=== PATIENT | male | born 1995 | race Caucasian/White ===

== ENCOUNTER 2022-07-19 22:22 | Emergency (ER) | payer SELFPAY ==
[2022-07-19 22:31] VITALS: BP 136/73; PULSE 101; RESP 16; TEMP 36.6; O2SAT 100; BMI 26.4
[2022-07-19 22:35] VITALS: BP 155/104; PULSE 120; O2SAT 98
--- NOTE | 2022-07-19 23:24 | ED_ITS ---
HPI - General Adult
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
[2022-07-19 23:34] VITALS: BP 145/100; PULSE 62; RESP 16; TEMP 36.8; O2SAT 98
== END 2022-07-19 23:51 | disposition home or self-care (01) ==
PROVIDERS: Emergency Provider Emergency Medicine
DX: S00.81XA Abrasion of other part of head, initial encounter (principal); R51.9 Headache, unspecified; V43.52XA Car driver injured in collision with other type car in traffic accident, initial encounter; Y93.9 Activity, unspecified; Y92.410 Unspecified street and highway as the place of occurrence of the external cause; Y99.9 Unspecified external cause status; Z23 Encounter for immunization
CPT/HCPCS: 12013; 90471; 90715; 99284

== ENCOUNTER 2022-07-20 01:31 | Inpatient (IN) | payer OTHER, SELFPAY ==
[2022-07-20 01:43] VITALS: BP 142/89; PULSE 82; RESP 16; TEMP 36.4; O2SAT 97; BMI 24.3
[2022-07-20 02:04] VITALS: PULSE 81; RESP 18; TEMP 36.3; O2SAT 97
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
[2022-07-20 02:20] LABS: MANUAL DIFF FLAG NO
[2022-07-20 02:21] LABS: Basophils Absolute Auto 0.1 X10*3/uL (0.0-0.2); Basophils Percent Auto 0.6 % (0-2); Eosinophils Absolute Auto 0.2 X10*3/uL (0.0-0.4); Eosinophils Percent Auto 1.7 % (0-4); Hematocrit 47.5 % (42.0-52.0); Hemoglobin 15.6 g/dl (14.0-18.0); Imm Gran Abs Auto 0.05 X10*3/uL (0.00-0.03); Imm Gran Pct Auto 0.4 % (0.0-0.4); Lymphocytes Absolute Auto 2.3 X10*3/uL (1.2-4.9); Lymphocytes Percent Auto 16.1 % (20-40); Mean Corpuscular HGB Conc 32.8 g/dl (31.0-36.0); Mean Corpuscular Hemoglobin 31.5 pg (27.0-33.0); Mean Corpuscular Volume 95.8 fL (80.0-98.0); Mean Platelet Volume 8.3 fL (9.4-12.4); Monocytes Percent Auto 6.8 % (2-11); Neutrophils Absolute Auto 10.5 x10*3/uL (2.0-8.3); Neutrophils Percent Auto 74.4 % (45-73); Platelet Count 328 X10*3/uL (160-400); Red Blood Count 4.96 X10*6/uL (4.60-5.80); Red Cell Distribution Width 12.9 % (11.0-16.0)
[2022-07-20 02:35] LABS: Ethanol 134 mg/dL
[2022-07-20 02:38] LABS: Alanine Aminotransferase 32 U/L (0-40); Albumin Level 5.2 g/dL (3.5-5.0); Alkaline Phosphatase 73 U/L (39-117); Anion Gap 17 (12-20); Aspartate Amino Transferase 30 U/L (5-37); Bilirubin Total 0.3 mg/dL (0.0-1.0); Blood Urea Nitrogen 9 mg/dL (9-16); Calcium 9.9 mg/dL (8.4-10.2); Carbon Dioxide 26 mmol/L (22-29); Chloride 104 mmol/L (96-108); Creatinine Clr Calc Pharmacy 120.9; Estimated Glomerular Filt Rate > 60; Glucose Random 123 mg/dL (60-115); Potassium 4.8 mmol/L (3.3-5.1); Sodium 142 mmol/L (135-145)
[2022-07-20 02:41] LABS: COVID-19 Test Negative (Negative)
[2022-07-20 03:05] LABS: Amphetamine Screen Urine Not Detected (Not Detect); Barbiturates, Urine Not Detected (Not Detect); Benzodiazepines Screen Urine Not Detected (Not Detect); Cannabinoid Screen Urine POSITIVE (Not Detect); Cocaine Screen Urine POSITIVE (Not Detect); Fentanyl, urine Not Detected (Not Detect); Opiate Screen Urine Not Detected (Not Detect); Phencyclidine Screen Urine Not Detected (Not Detect)
--- NOTE | 2022-07-20 06:40 | PC.NURSE ---
Patient was presented to ED POD at 0115, patient compliant with global climate change researcher process, labs completed and unremarkable, VSS, behavior appropriate and non concerning at this time, [facility] referral completed/confirmed/pending ETA for suicidality, med rec completed/patient is not on any home medication per patient and record, Ativan 2 mg PO administered at 030 with + effect, patient has been sleeping since 314, will continue to monitor.
--- NOTE | 2022-07-20 07:08 | PC.NURSE ---
patient appears to remain asleep at present respirations are even and unlabored patient appears in no distress
--- NOTE | 2022-07-20 11:08 | MHC.CARE ---
CARE Team notified RN and MD regarding Pts daily alcohol use x 5 years
--- NOTE | 2022-07-20 11:15 | ECG_ITS ---
Test Reason : MEDICATION, DRUG USE Blood Pressure : / mmHG Vent. Rate : 089 BPM Atrial Rate : 089 BPM P-R Int : 148 ms QRS Dur : 088 ms QT Int : 362 ms P-R-T Axes : 054 088 060 degrees QTc Int : 440 ms Sinus rhythm with marked sinus arrhythmia Septal infarct , age undetermined Abnormal ECG When compared with ECG of 04-NOV-2014 17:39, No significant change was found Referred By: Annamaria Null Electronically Signed By:Dutch Whatley
[2022-07-20 11:41] LABS: Appearance Urine Clear; Color Urine Yellow; Glucose Urine UA Negative (Negative); Leukocyte Esterase Urine Negative (Negative); Nitrite Urine Negative (Negative); Urine Blood Negative (Negative); Urine Ketones Trace mg/dL (Negative); Urine Protein Negative (Neg-Trace)
[2022-07-20 11:49] VITALS: BP 138/85; PULSE 107; RESP 18; TEMP 37.4; O2SAT 98
[2022-07-20 12:29] LABS: IDNOW Serial# BCCEAD1C; Influenza A Negative (Negative); Influenza B2 Negative (Negative)
[2022-07-20 23:10] VITALS: BP 130/72; PULSE 79
[2022-07-20] MEDS: traZODone HCL 50 MG TABLET PO (23:40)
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
[2022-07-21 06:00] VITALS: BP 135/72; PULSE 81; TEMP 36.6; O2SAT 96
[2022-07-21] MEDS: Thiamine HCL 100 MG TABLET 50 MG PO (08:55)
[2022-07-21] MEDS: Folic Acid 1 MG TABLET PO (08:56)
--- NOTE | 2022-07-21 08:59 | P.HPPS_ITS ---
HPI Date of Service: 07/21/22 Chief Complaint: depession assessment reviewed HPI Subjective Notes: Conditional Voluntary Healthcare Proxy: No Guardianship: No Medical Problems Affecting Mental Status: No Narrative: 11:49 07/20/22 23:10 Temperature 99.4 F Pulse Rate 107 H 79 Respiratory Rate 18 Blood Pressure 138/85 130/72 Pulse Oximetry 98 Oxygen Delivery Method Room Air BMI result on a CIWA protocol. He has not been on any psychotropic medications. While he
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
[2022-07-21 09:38] LABS: Estimated Average Glucose 91 mg/dL; Hemoglobin A1c % 4.8 %
[2022-07-21 10:18] LABS: Cholesterol 216 mg/dL; HDL Cholesterol 55 mg/dL; LDL Cholesterol Calculated 132 mg/dl; Magnesium 2.1 mg/dL (1.6-2.6); Thyroid Stimulating Hormone 1.53 uIU/mL (0.32-4.0); Triglycerides 145 mg/dL
[2022-07-21 10:41] LABS: Folate 18.4 ng/mL (> or = 4.0); Vitamin B12 260 pg/mL (200-900)
[2022-07-21 16:49] VITALS: RESP 16
[2022-07-21] MEDS: Nicotine Polacrilex 2 MG GUM BUCCAL (16:57)
[2022-07-22 08:03] VITALS: BP 142/74; PULSE 74; RESP 16; TEMP 36.7; O2SAT 98
[2022-07-22] MEDS: Thiamine HCL 100 MG TABLET 50 MG PO (09:10)
[2022-07-22] MEDS: Folic Acid 1 MG TABLET PO (09:10)
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
[2022-07-22] MEDS: Nicotine Polacrilex 2 MG GUM BUCCAL ×3 (12:10→18:45)
[2022-07-22 18:00] VITALS: BP 134/69; PULSE 80; TEMP 36.9; O2SAT 97
[2022-07-22] MEDS: traZODone HCL 50 MG TABLET PO (22:14)
[2022-07-23] MEDS: Thiamine HCL 100 MG TABLET 50 MG PO (09:16)
[2022-07-23] MEDS: Sertraline HCL 50 MG TABLET PO (09:23)
[2022-07-23] MEDS: Folic Acid 1 MG TABLET PO (09:24)
[2022-07-23] MEDS: Nicotine Polacrilex 2 MG GUM BUCCAL ×5 (09:24→21:12)
[2022-07-23 10:00] VITALS: BP 130/75; PULSE 83; RESP 20; TEMP 36.5; O2SAT 97
--- NOTE | 2022-07-23 10:39 | P.PNPSI_ITS ---
Subjective Subjective Date of Service: 07/23/22 Reason For Visit: depession Interim History: Patient reports that he has feeling good. Minimal alcohol withdrawa, more at nighttime l. Says he is excited that he has been sober for 2 days and optimistic about remaining so. His plan is to engage in therapy post discharge and attended group similar to AA. Patient agrees with medication regimen as it is and to leave Zoloft at 50 mg; he understands that this can be titrated as needed. Patient denies any SI or HI and reports he is sleeping well. Patient referenced history of a lot of trauma and wanting therapy. Discussed history of substance abuse and patient says he has been drinking alcohol since about 8 years old but has been drinking daily for the past 7 years; cocaine started about 3 years ago and he uses 2 to 3 times a week. Reviewed psychiatric history and patient denies any history of manic type symptoms or episodes. Mental Status Exam Mental Status Exam Narrative: Pt is alert and oriented; behavior is cooperative, friendly and calm; patient is not in distress; dressed in casual attire with unkempt hair but adequate hygiene; laceration with stitches on forehead; mood is described as good and affect congruent; eye contact appropriate; Speech is normal rate; a little loud, but normal prosody and not pressured; no psychomotor agitation/retardation present; thought process is organized and goal directed; Thought content is on tx; otherwise pertinent to relevant topics and without any delusional content, paranoid ideations or grandiosity; denies any SI/HI. There is no evidence of perceptual disturbance. Patients insight and judgment appear intact. Diagnostics Vital Signs (24Hr): Vital Signs - 24 hr 07/22/22 18:00 Temperature 98.4 F Pulse Rate 80 Blood Pressure 134/69 Pulse Oximetry 97 Oxygen Delivery Method Room Air BMI result Body Mass Index 24.3 Labs Results: 07/20/22 02:15 07/20/22 02:16 Labs: Laboratory Results - last 48 hr 07/21/22 08:50 Vitamin B12 260 Folate 18.4 Imaging Radiology Impressions: ITS Impressions Chest X-Ray 07/20/22 11:26 IMPRESSION: Unremarkable examination. Medications Medications Current Medications Acetaminophen (Acetaminophen 325 Mg Tablet) 650 mg PO Q6H PRN PRN Reason: Headache/Pain Mild Scale (1-3) Al Hydroxide/Mg Hydroxide (Magnesium Hydrox/Alum Hydrox 30 Ml Oral.Susp) 30 ml PO Q6H PRN PRN Reason: Heartburn/Nausea Clonidine HCl (Clonidine Hcl 0.1 Mg Tablet) 0.1 mg PO TID PRN; Protocol PRN Reason: hyperarousal Folic Acid (Folic Acid 1 Mg Tablet) 1 mg PO DAILY [facility] Last Admin: 07/23/22 09:24 Dose: 1 mg Hydroxyzine HCl (Hydroxyzine Hcl 50 Mg Tablet) 50 mg PO Q6H PRN PRN Reason: Anxiety Lorazepam (Lorazepam 1 Mg Tablet) 1 mg PO Q4H PRN PRN Reason: [facility] 7-12 Lorazepam (Lorazepam 1 Mg Tablet) 2 mg PO Q4H PRN PRN Reason: [facility] - Last Admin: 07/20/22 23:46 Dose: 2 mg Magnesium Hydroxide (Milk Of Magnesia 30 Ml Oral.Susp) 30 ml PO DAILY PRN PRN Reason: Constipation Nicotine Polacrilex (Nicotine Polacrilex 2 Mg Gum) 2 mg BUCCAL Q2H PRN PRN Reason: Nicotine Cravings Last Admin: 07/23/22 09:24 Dose: 2 mg Ondansetron HCl (Ondansetron Odt 4 Mg Tab.Rapdis) 4 mg TRANSLINGU Q6H PRN PRN Reason: nausea Sertraline HCl (Sertraline Hcl 50 Mg Tablet) 50 mg PO DAILY [facility] Last Admin: 07/23/22 09:23 Dose: 50 mg Thiamine HCl (Thiamine Hcl 100 Mg Tablet) 50 mg PO DAILY [facility] Last Admin: 07/23/22 09:16 Dose: 50 mg Trazodone HCl (Trazodone Hcl 50 Mg Tablet) 50 mg PO BEDTIME PRN PRN Reason: Insomnia Last Admin: 07/22/22 22:14 Dose: 50 mg Allergies Allergies Allergy/AdvReac Type Severity Reaction Status Date / Time No Known Allergies Allergy Unverified 04/13/20 16:12 [No Known Allergies*] Assessment & Plan Assessment & Plan (1) Major depression, recurrent: Status: Acute Code(s): F33.9 - Major depressive disorder, recurrent, unspecified Plan Hiram was admitted for safety and stabilization and detoxification. He is on a [facility] protocol. We discussed medication options and I will initiate Zoloft 25 mg daily. Side effects were reviewed. He will meet with his treatment team on 07/23. At patient referral to be made. Hospital course: 07/22: Continue current regimen and plans. Increase Zoloft to 50 mg 07/23 patient reports good mood and is agreeable with medication regimen PLAn: CV Q 15 minute checks DC [facility]; DC [facility]; patient has not scored enough to get any benzos for 2 days -will add gabapentin 300 mg q.h.s. for a couple nights to help with any linger ing withdrawal symptoms (discussed with patient who agrees) Continue Zoloft 50 mg Social Work helping set up disposition and aftercare Patient educated on: diagnosis, medication risk/benefits, substance abuse and therapeutic strategies Informed Consent: understands Reason for contiued inpatient stay Substantial Risk for: stable for discharge Time Spent With Patient Time: Total time managing care of this patient today ____ minutes.
[2022-07-23 17:45] VITALS: BP 143/84; PULSE 80; TEMP 36.4
[2022-07-23] MEDS: Gabapentin 300 MG CAPSULE PO (21:11)
[2022-07-23] MEDS: traZODone HCL 50 MG TABLET PO (21:12)
[2022-07-24 06:00] VITALS: BP 144/68; PULSE 80; RESP 16; TEMP 37.3; O2SAT 98
[2022-07-24] MEDS: Thiamine HCL 100 MG TABLET 50 MG PO (08:32)
[2022-07-24] MEDS: Folic Acid 1 MG TABLET PO (08:32)
[2022-07-24] MEDS: Sertraline HCL 50 MG TABLET PO (08:33)
[2022-07-24] MEDS: Nicotine Polacrilex 2 MG GUM BUCCAL ×4 (08:59→19:33)
[2022-07-24 13:13] LABS: COVID-19 Test Positive (Negative); IDNOW Serial# BCCEAD1C
--- NOTE | 2022-07-24 14:59 | HO.PSYCHPN ---
Subjective Subjective Date of Service: 07/24/22 Reason For Visit: depession Interim History: Patient reports a little frustration today since he is having trouble getting a hold of his sister but otherwise good mood and no complaints. Patient did test positive for COVID but so far no clear symptoms. Feels that medications are helpful and that he slept well last night. Remains eager for help setting up aftercare services. Attending groups and engaged in treatment Mental Status Exam Mental Status Exam Narrative: Pt is alert and oriented; behavior is cooperative, friendly and calm; patient is not in distress; dressed in casual attire with unkempt hair but adequate hygiene; laceration with stitches on forehead; mood is described as good and affect congruent; eye contact appropriate; Speech is normal rate; a little loud, but normal prosody and not pressured; no psychomotor agitation/retardation present; thought process is organized and goal directed; Thought content is on tx; otherwise pertinent to relevant topics and without any delusional content, paranoid ideations or grandiosity; denies any SI/HI. There is no evidence of perceptual disturbance. Patients insight and judgment appear intact. Diagnostics Vital Signs (24Hr): Vital Signs - 24 hr 07/23/22 17:45 07/24/22 06:00 Temperature 97.6 F 99.1 F Pulse Rate 80 80 Respiratory Rate 16 Blood Pressure 143/84 H 144/68 H Pulse Oximetry 98 Oxygen Delivery Method Room Air BMI result Body Mass Index 24.3 Labs Results: 07/20/22 02:15 07/20/22 02:16 Labs: Laboratory Results - last 48 hr 07/24/22 12:46 COVID-19 ([facility]) Positive A COVID-19 Clin Com See Note Imaging Radiology Impressions: ITS Impressions Chest X-Ray 07/20/22 11:26 IMPRESSION: Unremarkable examination. Medications Medications Current Medications Acetaminophen (Acetaminophen 325 Mg Tablet) 650 mg PO Q6H PRN PRN Reason: Headache/Pain Mild Scale (1-3) Al Hydroxide/Mg Hydroxide (Magnesium Hydrox/Alum Hydrox 30 Ml Oral.Susp) 30 ml PO Q6H PRN PRN Reason: Heartburn/Nausea Clonidine HCl (Clonidine Hcl 0.1 Mg Tablet) 0.1 mg PO TID PRN; Protocol PRN Reason: hyperarousal Folic Acid (Folic Acid 1 Mg Tablet) 1 mg PO DAILY [facility] Last Admin: 07/24/22 08:32 Dose: 1 mg Gabapentin (Gabapentin 300 Mg Capsule) 300 mg PO BEDTIME [facility] Stop: 07/25/22 23:50 Last Admin: 07/23/22 21:11 Dose: 300 mg Hydroxyzine HCl (Hydroxyzine Hcl 50 Mg Tablet) 50 mg PO Q6H PRN PRN Reason: Anxiety Magnesium Hydroxide (Milk Of Magnesia 30 Ml Oral.Susp) 30 ml PO DAILY PRN PRN Reason: Constipation Nicotine Polacrilex (Nicotine Polacrilex 2 Mg Gum) 2 mg BUCCAL Q2H PRN PRN Reason: Nicotine Cravings Last Admin: 07/24/22 12:17 Dose: 2 mg Ondansetron HCl (Ondansetron Odt 4 Mg Tab.Rapdis) 4 mg TRANSLINGU Q6H PRN PRN Reason: nausea Sertraline HCl (Sertraline Hcl 50 Mg Tablet) 50 mg PO DAILY [facility] Last Admin: 07/24/22 08:33 Dose: 50 mg Thiamine HCl (Thiamine Hcl 100 Mg Tablet) 50 mg PO DAILY [facility] Last Admin: 07/24/22 08:32 Dose: 50 mg Trazodone HCl (Trazodone Hcl 50 Mg Tablet) 50 mg PO BEDTIME PRN PRN Reason: Insomnia Last Admin: 07/23/22 21:12 Dose: 50 mg Allergies Allergies Allergy/AdvReac Type Severity Reaction Status Date / Time No Known Allergies Allergy Unverified 04/13/20 16:12 [No Known Allergies*] Assessment & Plan Assessment & Plan (1) Major depression, recurrent: Status: Acute Code(s): F33.9 - Major depressive disorder, recurrent, unspecified Plan Hiram was admitted for safety and stabilization and detoxification. He is on a [facility] protocol. We discussed medication options and I will initiate Zoloft 25 mg daily. Side effects were reviewed. He will meet with his treatment team on 07/23. At patient referral to be made. Hospital course: 07/22: Continue current regimen and plans. Increase Zoloft to 50 mg 07/23 patient reports good mood and is agreeable with medication regimen 07/24 continue current regimen COVID positive; agrees to isolation PLAn: CV Q 15 minute checks COVID positive; agrees to isolation dc'd [facility]; patient has not scored enough to get any benzos for 2 days -will add gabapentin 300 mg q.h.s. for a couple nights to help with any lingering withdrawal symptoms (discussed with patient who agrees) Continue Zoloft 50 mg Social Work helping set up disposition and aftercare Patient educated on: diagnosis and medical condition Informed Consent: understands Reason for contiued inpatient stay Substantial Risk for: stable for discharge Time Spent With Patient Time: Total time managing care of this patient today ____ minutes.
[2022-07-24 16:35] VITALS: BP 131/74; PULSE 90; TEMP 37.2
[2022-07-24] MEDS: traZODone HCL 50 MG TABLET PO (21:41)
[2022-07-24] MEDS: Gabapentin 300 MG CAPSULE PO (21:41)
[2022-07-25 06:00] VITALS: BP 120/77; PULSE 91; RESP 18; TEMP 36.7; O2SAT 97
[2022-07-25] MEDS: Folic Acid 1 MG TABLET PO (08:01)
[2022-07-25] MEDS: Sertraline HCL 50 MG TABLET PO (08:01)
[2022-07-25] MEDS: Thiamine HCL 100 MG TABLET 50 MG PO (08:01)
[2022-07-25] MEDS: Nicotine Polacrilex 2 MG GUM BUCCAL ×4 (10:25→20:06)
--- NOTE | 2022-07-25 10:30 | HO.PSYCHPN ---
Subjective Subjective Date of Service: 07/25/22 Reason For Visit: depession Interim History: Patient reports good mood and feeling stable. Denies any symptoms from COVID in says he was actually COVID positive back in May and wonders if this is just a remanent lab result. Patient optimistic about staying sober. [employer] and patient discussed vulnerabilities and risks of relapse which patient says he is taking very seriously; discussed coping strategies. He shared his plan for sobriety which is well thought out and involves daily meetings and eventually therapy once that is set up; his sister and father are both sober and in sustained recovery and are supportive; he plans to stay with his sister post discharge. Patient has talked to his friends who have removed all of the alcohol from the house and are also supportive and helping him pursue sobriety. Patient reports sleeping well with gabapentin; had some weird dreams on trazodone but wants to continue. No SI no HI no AVH. Mental Status Exam Mental Status Exam Narrative: Pt is alert and oriented; behavior is cooperative, friendly and calm; patient is not in distress; dressed in casual attire with unkempt hair but adequate hygiene; laceration with stitches on forehead; mood is described as good and affect congruent; eye contact appropriate; Speech is normal rate; a little loud, but normal prosody and not pressured; no psychomotor agitation/retardation present; thought process is organized and goal directed; Thought content is on tx; otherwise pertinent to relevant topics and without any delusional content, paranoid ideations or grandiosity; denies any SI/HI. There is no evidence of perceptual disturbance. Patients insight and judgment are fair. Diagnostics Vital Signs (24Hr): Vital Signs - 24 hr 07/24/22 16:35 07/25/22 06:00 Temperature 98.9 F 98.1 F Pulse Rate 90 91 Respiratory Rate 18 Blood Pressure 131/74 120/77 Pulse Oximetry 97 Oxygen Delivery Method Room Air BMI result Body Mass Index 24.3 Labs Results: 07/20/22 02:15 07/20/22 02:16 Labs: Laboratory Results - last 48 hr 07/24/22 12:46 COVID-19 ([facility]) Positive A COVID-19 Clin Com See Note Imaging Radiology Impressions: ITS Impressions Chest X-Ray 07/20/22 11:26 IMPRESSION: Unremarkable examination. Medications Medications Current Medications Acetaminophen (Acetaminophen 325 Mg Tablet) 650 mg PO Q6H PRN PRN Reason: Headache/Pain Mild Scale (1-3) Al Hydroxide/Mg Hydroxide (Magnesium Hydrox/Alum Hydrox 30 Ml Oral.Susp) 30 ml PO Q6H PRN PRN Reason: Heartburn/Nausea Clonidine HCl (Clonidine Hcl 0.1 Mg Tablet) 0.1 mg PO TID PRN; Protocol PRN Reason: hyperarousal Folic Acid (Folic Acid 1 Mg Tablet) 1 mg PO DAILY [facility] Last Admin: 07/25/22 08:01 Dose: 1 mg Gabapentin (Gabapentin 300 Mg Capsule) 300 mg PO BEDTIME [facility] Stop: 07/25/22 23:50 Last Admin: 07/24/22 21:41 Dose: 300 mg Hydroxyzine HCl (Hydroxyzine Hcl 50 Mg Tablet) 50 mg PO Q6H PRN PRN Reason: Anxiety Magnesium Hydroxide (Milk Of Magnesia 30 Ml Oral.Susp) 30 ml PO DAILY PRN PRN Reason: Constipation Nicotine Polacrilex (Nicotine Polacrilex 2 Mg Gum) 2 mg BUCCAL Q2H PRN PRN Reason: Nicotine Cravings Last Admin: 07/25/22 10:25 Dose: 2 mg Ondansetron HCl (Ondansetron Odt 4 Mg Tab.Rapdis) 4 mg TRANSLINGU Q6H PRN PRN Reason: nausea Sertraline HCl (Sertraline Hcl 50 Mg Tablet) 50 mg PO DAILY [facility] Last Admin: 07/25/22 08:01 Dose: 50 mg Thiamine HCl (Thiamine Hcl 100 Mg Tablet) 50 mg PO DAILY [facility] Last Admin: 07/25/22 08:01 Dose: 50 mg Trazodone HCl (Trazodone Hcl 50 Mg Tablet) 50 mg PO BEDTIME PRN PRN Reason: Insomnia Last Admin: 07/24/22 21:41 Dose: 50 mg Allergies Allergies Allergy/AdvReac Type Severity Reaction Status Date / Time No Known Allergies Allergy Unverified 04/13/20 16:12 [No Known Allergies*] Assessment & Plan Assessment & Plan (1) Major depression, recurrent: Status: Acute Code(s): F33.9 - Major depressive disorder, recurrent, unspecified Plan Hiram was admitted for safety and stabilization and detoxification. He is on a [facility] protocol. We discussed medication options and I will initiate Zoloft 25 mg daily. Side effects were reviewed. He will meet with his treatment team on 07/23. At patient referral to be made. Hospital course: 07/22: Continue current regimen and plans. Increase Zoloft to 50 mg 07/23 patient reports good mood and is agreeable with medication regimen 07/24 continue current regimen COVID positive; agrees to isolation 07/25 no COVID symptoms; could possibly be positive lab result as a remanent from COVID this past Thanks. Otherwise patient remains in a good mood, sleeping and eating well, optimistic about staying sober, future oriented and feeling good about discharge this Friday. Patient has remained engage with treatment and up until isolation attending all groups. He is treating his addictions seriously and not minimizing his risks and vulnerability to relapse, doing his best to set up a system that can help him remain sober. PLAn: CV Q 15 minute checks COVID positive; agrees to isolation -will add gabapentin 300 mg q.h.s. for a couple nights to help with any lingering withdrawal symptoms (discussed with patient who agrees) Continue Zoloft 50 mg Trazodone 50 mg q.h.s. p.r.n. Social Work helping set up disposition and aftercare Patient educated on: diagnosis, medication risk/benefits, substance abuse, therapeutic strategies and medical condition Informed Consent: understands Reason for contiued inpatient stay Substantial Risk for: stable for discharge Time Spent With Patient Time: Total time managing care of this patient today ____ minutes.
[2022-07-25] MEDS: Gabapentin 300 MG CAPSULE PO (20:48)
[2022-07-25] MEDS: traZODone HCL 50 MG TABLET PO (20:48)
[2022-07-26 06:00] VITALS: BP 145/74; PULSE 73; RESP 18; TEMP 36.3; O2SAT 99
--- NOTE | 2022-07-26 08:48 | HO.PSYCHPN ---
Subjective Subjective Date of Service: 07/26/22 Reason For Visit: depession Interim History: No COVID symptoms Continues to sleep well, feels good, optimistic about staying sober and stable. He is excited about his treatment plan. Discussed gabapentin as a can help for cravings which patient would like to continue with as it also helps with sleep. Also discussed the eventual expansion of coping tools to the point where patient will be able to cope with cravings and not need gabapentin. Also discussed risks/side effects of gabapentin including lower limb edema and risks of misuse, especially with other substance abuse; patient understands and will be cautious. Patient feels ready for discharge tomorrow. Mental Status Exam Mental Status Exam Narrative: Pt is alert and oriented; behavior is cooperative, friendly and calm; patient is not in distress; dressed in casual attire with unkempt hair but adequate hygiene; laceration with stitches on forehead; mood is described as good and affect congruent; eye contact appropriate; Speech is normal rate; a little loud, but normal prosody and not pressured; no psychomotor agitation/retardation present; thought process is organized and goal directed; Thought content is on tx, post discharge plans; otherwise pertinent to relevant topics and without any delusional content, paranoid ideations or grandiosity; denies any SI/HI. There is no evidence of perceptual disturbance. Patients insight and judgment are fair. Diagnostics Vital Signs (24Hr): BMI result Body Mass Index 24.3 Labs Results: 07/20/22 02:15 07/20/22 02:16 Labs: Laboratory Results - last 48 hr 07/24/22 12:46 COVID-19 (THUAN) Positive A COVID-19 Clin Com See Note Imaging Radiology Impressions: ITS Impressions Chest X-Ray 07/20/22 11:26 IMPRESSION: Unremarkable examination. Medications Medications Current Medications Acetaminophen (Acetaminophen 325 Mg Tablet) 650 mg PO Q6H PRN PRN Reason: Headache/Pain Mild Scale (1-3) Al Hydroxide/Mg Hydroxide (Magnesium Hydrox/Alum Hydrox 30 Ml Oral.Susp) 30 ml PO Q6H PRN PRN Reason: Heartburn/Nausea Clonidine HCl (Clonidine Hcl 0.1 Mg Tablet) 0.1 mg PO TID PRN; Protocol PRN Reason: hyperarousal Folic Acid (Folic Acid 1 Mg Tablet) 1 mg PO DAILY ELSIE Last Admin: 07/25/22 08:01 Dose: 1 mg Gabapentin (Gabapentin 300 Mg Capsule) 300 mg PO BID PRN PRN Reason: cravings/insomnia Gabapentin (Gabapentin 300 Mg Capsule) 300 mg PO BEDTIME ELSIE Hydroxyzine HCl (Hydroxyzine Hcl 50 Mg Tablet) 50 mg PO Q6H PRN PRN Reason: Anxiety Magnesium Hydroxide (Milk Of Magnesia 30 Ml Oral.Susp) 30 ml PO DAILY PRN PRN Reason: Constipation Nicotine Polacrilex (Nicotine Polacrilex 2 Mg Gum) 2 mg BUCCAL Q2H PRN PRN Reason: Nicotine Cravings Last Admin: 07/25/22 20:06 Dose: 2 mg Ondansetron HCl (Ondansetron Odt 4 Mg Tab.Rapdis) 4 mg TRANSLINGU Q6H PRN PRN Reason: nausea Sertraline HCl (Sertraline Hcl 50 Mg Tablet) 50 mg PO DAILY [facility] Last Admin: 07/25/22 08:01 Dose: 50 mg Thiamine HCl (Thiamine Hcl 100 Mg Tablet) 50 mg PO DAILY [facility] Last Admin: 07/25/22 08:01 Dose: 50 mg Trazodone HCl (Trazodone Hcl 50 Mg Tablet) 50 mg PO BEDTIME PRN PRN Reason: Insomnia Last Admin: 07/25/22 20:48 Dose: 50 mg Allergies Allergies Allergy/AdvReac Type Severity Reaction Status Date / Time No Known Allergies Allergy Unverified 04/13/20 16:12 [No Known Allergies*] Assessment & Plan Assessment & Plan (1) Major depression, recurrent: Status: Acute Code(s): F33.9 - Major depressive disorder, recurrent, unspecified Plan Hiram was admitted for safety and stabilization and detoxification. He is on a [facility] protocol. We discussed medication options and I will initiate Zoloft 25 mg daily. Side effects were reviewed. He will meet with his treatment team on 07/23. At patient referral to be made. Hospital course: 07/22: Continue current regimen and plans. Increase Zoloft to 50 mg 07/23 patient reports good mood and is agreeable with medication regimen 07/24 continue current regimen COVID positive; agrees to isolation 07/25 no COVID symptoms; could possibly be positive lab result as a remanent from COVID this past Thanksgiving. Otherwise patient remains in a good mood, sleeping and eating well, optimistic about staying sober, future oriented and feeling good about discharge this Friday. Patient has remained engage with treatment and up until isolation attending all groups. He is treating his addictions seriously and not minimizing his risks and vulnerability to relapse, doing his best to set up a system that can help him remain sober. 07/26 patient doing well, stable, future oriented and looking forward to discharge. Patient continues to pursue aftercare planning. He is not in imminent risk for harm to self or others and request for discharge honored. PLAn: CV Q 15 minute checks COVID positive; agrees to isolation Continue gabapentin q.h.s. since it helps with sleep; will add extra daytime dose p.r.n. for cravings. Continue Zoloft 50 mg Trazodone 50 mg q.h.s. p.r.n. Social Work helping set up disposition and aftercare Patient educated on: diagnosis, medication risk/benefits, substance abuse and therapeutic strategies Informed Consent: understands Reason for contiued inpatient stay Substantial Risk for: stable for discharge Time Spent With Patient Time: Total time managing care of this patient today ____ minutes.
[2022-07-26] MEDS: Thiamine HCL 100 MG TABLET 50 MG PO (08:53)
[2022-07-26] MEDS: Sertraline HCL 50 MG TABLET PO (08:54)
[2022-07-26] MEDS: Folic Acid 1 MG TABLET PO (08:54)
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
[2022-07-26] MEDS: Nicotine Polacrilex 2 MG GUM BUCCAL ×3 (10:41→19:02)
[2022-07-26 18:00] VITALS: BP 137/86; PULSE 75; RESP 16; TEMP 37.4; O2SAT 98
[2022-07-26] MEDS: traZODone HCL 50 MG TABLET PO (22:14)
[2022-07-26] MEDS: Gabapentin 300 MG CAPSULE PO (22:14)
[2022-07-27 06:00] VITALS: BP 153/84; PULSE 95; RESP 16; TEMP 37.4; O2SAT 98
[2022-07-27] MEDS: Sertraline HCL 50 MG TABLET PO (09:33)
[2022-07-27] MEDS: Folic Acid 1 MG TABLET PO (09:33)
[2022-07-27] MEDS: Thiamine HCL 100 MG TABLET 50 MG PO (09:33)
--- NOTE | 2022-07-27 19:41 | HO.PSYCHPN ---
Subjective Subjective Date of Service: 07/27/22 Reason For Visit: depession Interim History: Planning discharge today. Pleased with how he is feeling. Review of medications. No current questions or concerns. Looking forward to getting back to his life he reports. Discussed his love of Magdiel Busby and current reading of IT, which was a gift from his mother. Medication Compliance: Yes Side effects from medications: No Attending Groups: No Review of Systems Acute medical concerns: No Medical Review of Systems: unchanged Mental Status Exam Mental Status Exam Patient Appearance: Appropriate Patient Orientation: Person, Place, Time and Situation Level of Consciousness: Alert Patient Behavior: Appropriate, Talkative and Good Eye Contact Mood Description: Appropriate Affect Description: Appropriate Patient Cognition Impaired: No Ability to Follow Directions: Good Speech Pattern: Spontaneous Speech Memory Description: Intact Hallucinations: None Thought Process: Intact and Goal Oriented Thought Content: positive for Intact and positive for Goal Oriented Judgement: Good Diagnostics Vital Signs (24Hr): Vital Signs - 24 hr 07/27/22 06:00 Temperature 99.3 F Pulse Rate 95 Respiratory Rate 16 Blood Pressure 153/84 H Pulse Oximetry 98 Oxygen Delivery Method Room Air BMI result Body Mass Index 24.3 Labs Results: 07/20/22 02:15 07/20/22 02:16 Imaging Radiology Impressions: ITS Impressions Chest X-Ray 07/20/22 11:26 IMPRESSION: Unremarkable examination. Medications Allergies Allergies Allergy/AdvReac Type Severity Reaction Status Date / Time No Known Allergies Allergy Unverified 04/13/20 16:12 [No Known Allergies*] Assessment & Plan Assessment & Plan (1) Major depression, recurrent: Status: Acute Code(s): F33.9 - Major depressive disorder, recurrent, unspecified Plan Hiram was admitted for safety and stabilization and detoxification. He is on a [facility] protocol. We discussed medication options and I will initiate Zoloft 25 mg daily. Side effects were reviewed. He will meet with his treatment team on 07/23. At patient referral to be made. Hospital course: 07/22: Continue current regimen and plans. Increase Zoloft to 50 mg 07/23 patient reports good mood and is agreeable with medication regimen 07/24 continue current regimen COVID positive; agrees to isolation 07/25 no COVID symptoms; could possibly be positive lab result as a remanent from COVID this past Thanksgiving. Otherwise patient remains in a good mood, sleeping and eating well, optimistic about staying sober, future oriented and feeling good about discharge this Friday. Patient has remained engage with treatment and up until isolation attending all groups. He is treating his addictions seriously and not minimizing his risks and vulnerability to relapse, doing his best to set up a system that can help him remain sober. 07/26 patient doing well, stable, future oriented and looking forward to discharge. Patient continues to pursue aftercare planning. He is not in imminent risk for harm to self or others and request for discharge honored. 07/27/22 Discharge planned for today. PLAn: CV Q 15 minute checks COVID positive; agrees to isolation Continue gabapentin q.h.s. since it helps with sleep; will add extra daytime dose p.r.n. for cravings. Continue Zoloft 50 mg Trazodone 50 mg q.h.s. p.r.n. Social Work helping set up disposition and aftercare Informed Consent: understands Reason for contiued inpatient stay Substantial Risk for: stable for discharge Time Spent With Patient Time: Total time managing care of this patient today ___15_ minutes.
== END 2022-07-27 13:30 | disposition home or self-care (01) | DRG 885 ==
LOC: HO.ED 04:07 → HO.PM5 20:49
PROVIDERS: Clinical Nurse Specialist Psychiatric/Mental Health, Adult; Student in an Organized Health Care Education/Training Program; Admitting Provider Registered Nurse; Emergency Provider Internal Medicine; Visit Provider Psychiatry & Neurology Psychiatry
DX: F33.2 Major depressive disorder, recurrent severe without psychotic features (principal); U07.1 COVID-19; R45.851 Suicidal ideations; F17.210 Nicotine dependence, cigarettes, uncomplicated; F10.20 Alcohol dependence, uncomplicated; Y90.6 Blood alcohol level of 120-199 mg/100 ml; Z23 Encounter for immunization; Z59.01 Sheltered homelessness; Z91.51 Personal history of suicidal behavior; Z79.899 Other long term (current) drug therapy
CPT/HCPCS: 36415; 71045; 80053; 80061; 80307; 81003; 82077; 82607; 82746; 83036; 83735; 84439; 84443; 85025; 87502; 87635; 90686; 93005; 99285

== ENCOUNTER 2022-11-04 12:36 | Emergency (ER) | payer MEDICAID, OTHER, SELFPAY ==
[2022-11-04 13:26] VITALS: BP 134/70; PULSE 90; RESP 18; TEMP 36.7; O2SAT 99; BMI 23.8
--- NOTE | 2022-11-04 13:41 | ED.GENADULT ---
HPI - General Adult General Chief complaint: Psychiatric Symptoms <JEANNA Mcelroy - Last Filed: 11/11/22 09:24> Stated complaint: crisis <JEANNA Mcelroy - Last Filed: 11/11/22 09:24> Time Seen by Provider: 11/04/22 15:20 <JEANNA Mcelroy - Last Filed: 11/11/22 09:24> Source: patient <Georgia Finnegan NP - Last Filed: 11/04/22 18:07> Mode of arrival: ambulatory <Georgia Finnegan NP - Last Filed: 11/04/22 18:07> Limitations: no limitations <SARAH Hendrickson Last Filed: 11/04/22 18:07> History of Present Illness HPI narrative: 27-year-old male with a history of depression, alcohol use disorder presents the ER with complaints of feeling depressed. Patient would like to be admitted for dual diagnosis. He is drinking up to 1 sleeve of nips per day. Last drink 4 hours prior to arrival. No additional substance use. No SI or HI or hallucination. Patient reports he was admitted here in June of 2022 and was discharged home with sertraline, gabapentin, trazodone. Patient reports he took these medications but did not pay for his insurance premium and so they would not cover his medications when he went to refill them. He currently does not have any insurance. He has not had meds in >3months. No physical complaints <Georgia Finnegan NP - Last Filed: 11/04/22 18:07> Related Data Home medications: Home Medications Medication Instructions Recorded Confirmed No Known Home Meds 11/04/22 11/04/22 <JEANNA Mcelroy - Last Filed: 11/11/22 09:24> Allergies/adverse reactions: Allergies Allergy/AdvReac Type Severity Reaction Status Date / Time No Known Allergies Allergy Unverified 04/13/20 16:12 [No Known Allergies*] <JEANNA Mcelroy - Last Filed: 11/11/22 09:24> Review of Systems Review of Systems: Yes all other systems are reviewed and are negative <SARAH Hendrickson Last Filed: 11/04/22 18:07> Constitutional: Constitutional: Reports no additional constitutional complaints, Denies body ache(s), Denies chills, Denies fever(s), Denies headache(s) and Denies weakness <Georgia Finnegan [employer] - Last Filed: 11/04/22 18:07> Eyes: Eyes: Reports no additional eye complaints and Denies change in vision <Georgia Finnegan [employer] - Last Filed: 11/04/22 18:07> ENT: Reports system reviewed and no additional complaints, except as documented, Denies dizziness, Denies headache(s), Denies nasal congestion, Denies nasal discharge and Denies neck pain <Georgia Finnegan [employer] - Last Filed: 11/04/22 18:07> Cardiovascular: Cardiovascular: Reports no additional cardiovascular complaints, Denies chest pain, Denies leg edema and Denies dyspnea <Georgia Finnegan [employer] - Last Filed: 11/04/22 18:07> Respiratory: Respiratory: Reports no additional respiratory complaints, Denies cough and Denies dyspnea <Georgia Finnegan [employer] - Last Filed: 11/04/22 18:07> Gastrointestinal: Gastrointestinal: Reports no additional gastrointestinal complaints, Denies abdominal pain, Denies diarrhea, Denies nausea and Denies vomiting <Georgia Finnegan [employer] - Last Filed: 11/04/22 18:07> Genitourinary: Genitourinary: Denies urinary incontinence <Georgia Finnegan [employer] - Last Filed: 11/04/22 18:07> Musculoskeletal: Musculoskeletal: Reports no additional musculoskeletal complaints, Denies back pain, Denies arthralgias, Denies joint swelling, Denies neck pain, Denies numbness and Denies tingling <Georgia Finnegan [employer] - Last Filed: 11/04/22 18:07> Integumentary/Breasts: Skin/Breast: Reports system reviewed and no additional complaints, except as docu and Denies rash <Georgia Finnegan [employer] - Last Filed: 11/04/22 18:07> Neurologic: Reports system reviewed and no additional complaints, except as documented, Denies dizziness, Denies headache(s), Denies numbness, Denies tingling and Denies weakness <Georgia Finnegan NP - Last Filed: 11/04/22 18:07> Psychiatric: Psychiatric: Denies anxiety, Reports depression, Denies homicidal ideation and Denies suicidal ideation <Georgia Finnegan NP - Last Filed: 11/04/22 18:07> [facility] Past Medical History Attestation statement: The following information was validated with the patient. <Georgia Finnegan NP - Last Filed: 11/04/22 18:07> Source: old records reviewed <Georgia Finnegan NP - Last Filed: 11/04/22 18:07> Medical History: Medical History Bipolar disorder Suicidal ideation <JEANNA Mcelroy - Last Filed: 11/11/22 09:24> Social History Social History: Social History Household Members: None Housing: Apartment Do you presently have visiting nurse or other home services: No Alcohol intake: current Alcohol intake frequency: holidays/special occasions only Patient Tobacco Use Status: Current everyday Tobacco user Tobacco use type: Cigarette Cigarette Packs Per Day: 1 Cigarettes Per Day: 20.0 Years Smoked: 9 e-Cigarette/Vaping Use: Never Used Second Hand Smoke Exposure: Yes Substance Use Type: Crack/Cocaine and Marijuana Advance Directives: No Advance Directives Information Provided: No service: No Sexual orientation: Straight/Heterosexual <JEANNA Mcelroy - Last Filed: 11/11/22 09:24> Physical Exam ED Vital Signs: Vital Signs - 24 hr 11/04/22 13:26 11/05/22 02:10 11/05/22 06:01 Temperature 98.1 F 98 F 96.9 F Pulse Rate 90 78 75 Respiratory Rate 18 19 18 Blood Pressure 134/70 135/81 111/78 Pulse Oximetry 99 99 Oxygen Delivery Method Room Air Room Air Room Air BMI result Body Mass Index 23.8 <JEANNA Mcelroy Last Filed: 11/11/22 09:24> Vital Signs - 24 hr 11/04/22 13:26 11/05/22 02:10 11/05/22 06:01 Temperature 98.1 F 98 F 96.9 F Pulse Rate 90 78 75 Respiratory Rate 18 19 18 Blood Pressure 134/70 135/81 111/78 Pulse Oximetry 99 99 Oxygen Delivery Method Room Air Room Air Room Air BMI result Body Mass Index 23.8 <Georgia Finnegan NP - Last Filed: 11/04/22 18:07> Vital Signs - 24 hr 11/04/22 13:26 11/05/22 02:10 11/05/22 06:01 Temperature 98.1 F 98 F 96.9 F Pulse Rate 90 78 75 Respiratory Rate 18 19 18 Blood Pressure 134/70 135/81 111/78 Pulse Oximetry 99 99 Oxygen Delivery Method Room Air Room Air Room Air BMI result Body Mass Index 23.8 <Nir Calvin MD - Last Filed: 11/05/22 09:49> Const General: cooperative, healthy appearing, comfortable and no acute distress <Georgia Finnegan NP - Last Filed: 11/04/22 18:07> Orientation/consciousness: patient oriented x3 <Georgia Finnegan NP - Last Filed: 11/04/22 18:07> Limitations: no limitations <Georgia Finnegan NP - Last Filed: 11/04/22 18:07> HENMT Head: Yes normal to inspection <Georgia Finnegan NP - Last Filed: 11/04/22 18:07> Ears: hearing grossly normal bilaterally <Georgia Finnegan NP - Last Filed: 11/04/22 18:07> Eyes General: appearance normal, both eyes and all related structures <Georgia Finnegan NP - Last Filed: 11/04/22 18:07> Pupils: Equal, round and reactive pupils present <Georgia Finnegan NP - Last Filed: 11/04/22 18:07> Neck Neck: Yes normal visual inspection and Yes full ROM <Georgia Finnegan NP - Last Filed: 11/04/22 18:07> Chest Chest palpation & inspection: normal inspection of the chest <Georgia Finnegan NP - Last Filed: 11/04/22 18:07> Resp Effort & Inspection: normal respiratory effort <Georgia Finnegan NP - Last Filed: 11/04/22 18:07> Auscultation: clear to auscultation bilaterally <Georgia Finnegan [employer] - Last Filed: 11/04/22 18:07> Cardio Rate: regular rate <Georgia Finnegan [employer] - Last Filed: 11/04/22 18:07> Rhythm: regular rhythm <Georgia Finneagn [employer] - Last Filed: 11/04/22 18:07> Peripheral pulses: Peripheral pulses 2+ throughout <Georiga Finnegan [employer] - Last Filed: 11/04/22 18:07> GI Inspection: Yes normal to inspection <Georgia Finnegan [employer] - Last Filed: 11/04/22 18:07> Palpation (GI): Soft to palpation and nontender <Georgia Finnegan [employer] - Last Filed: 11/04/22 18:07> General: Yes no CVA tenderness <Georgia Finnegan [employer] - Last Filed: 11/04/22 18:07> Back/Spine/Pelvis Back: no CVA tenderness <Georgia Finnegan, [employer] - Last Filed: 11/04/22 18:07> Thoracic/Lumbar Spine: thoracic and lumbar spine normal to inspection <Georgia Finnegan [employer] - Last Filed: 11/04/22 18:07> Skin General skin exam: no rashes or lesions noted <Georgia Finnegan [employer] - Last Filed: 11/04/22 18:07> Neuro General: patient oriented x3 and moves all extremities <Georgia Finnegan [employer] - Last Filed: 11/04/22 18:07> Cranial nerves: Yes Equal, round and reactive pupils present <Georgia Finnegan [employer] - Last Filed: 11/04/22 18:07> Cognition (Neuro): normal cognition <Georgia Finnegan [employer] - Last Filed: 11/04/22 18:07> Extrem General: Yes normal to inspection, Yes no pedal edema and Yes no calf tenderness <Georgia Finnegan [employer] - Last Filed: 11/04/22 18:07> Course Course Course Narrative: RME: 27 yold male presents to the ED for depression and detox from alcohol. patient is not SI or homicidal. labs and CARE team ordereed <JEANNA Mcelroy - Last Filed: 11/11/22 09:24> Reevaluation(s) Reevaluation #1: Placed in physician observation pending disposition <Georgia Finnegan NP - Last Filed: 11/04/22 18:07> Reevaluation #2: physician observation: patient being evaluated for detox and to be cleared for safety, calm no issues <Nir Calvin MD - Last Filed: 11/05/22 09:49> Time: 09:49 <Nir Calvin MD - Last Filed: 11/05/22 09:49> Medical Decision Making Medical Decision Making MDM Narrative: 27-year-old male here with complaints of depression, increasing alcohol use looking for dual diagnosis bed. Patient denies suicidal thoughts. Patient has no physical complaints. No concern for acute ingestion or trauma. Will obtain labs, tox screen, COVID screen and crisis consultation <Georgia Finnegan NP - Last Filed: 11/04/22 18:07> Differential Diagnosis Differential Diagnoses: The differential diagnosis associated with the presentation includes <Georgia Finnegan NP - Last Filed: 11/04/22 18:07> Depression, substanceuse <Georgia Finnegan NP - Last Filed: 11/04/22 18:07> Lab Data [facility] Lab Attestation statement: I reviewed the patient's lab results. <Georgia Finnegan NP - Last Filed: 11/04/22 18:07> Result Diagrams: 11/04/22 16:00 11/04/22 16:00 <JEANNA Mcelroy - Last Filed: 11/11/22 09:24> Labs: Lab Results 11/04/22 11/04/22 11/04/22 Range/Units 15:35 16:00 16:00 WBC 11.6 H (4.8-10.8) X10*3/uL RBC 5.04 (4.60-5.80) X10*6/uL Hgb 15.9 (14.0-18.0) g/dl Hct 47.1 (42.0-52.0) % MCV 93.5 (80.0-98.0) fL MCH 31.5 (27.0-33.0) pg MCHC 33.8 (31.0-36.0) g/dl RDW 13.9 (11.0-16.0) % Plt Count 360 (160-400) X10*3/uL MPV 8.3 L (9.4-12.4) fL Immature Gran % (Auto) 0.3 (0.0-0.4) % Neut % (Auto) 55.7 (45-73) % Lymph % (Auto) 28.7 (20-40) % Norman % (Auto) 9.4 (2-11) % Eos % (Auto) 5.0 H (0-4) % Baso % (Auto) 0.9 (0-2) % Lymph # (Auto) 3.3 (1.2-4.9) X10*3/uL Norman # (Auto) 1.1 (0.1-1.2) X10*3/uL Eos # (Auto) 0.6 H (0.0-0.4) X10*3/uL Baso # (Auto) 0.1 (0.0-0.2) X10*3/uL Abs Immat Gran (auto) 0.04 H (0.00-0.03) X10*3/uL Absolute Neuts (auto) 6.5 (2.0-8.3) x10*3/uL Absolute Nucleated RBC 0.000 (0.0-0.012) X10*3/uL Nucleated RBC % (auto) 0.0 (0.0-0.2) /100WBC Sodium 148 H (135-145) mmol/L Potassium 4.2 (3.3-5.1) mmol/L Chloride 111 H (96-108) mmol/L Carbon Dioxide 26 (22-29) mmol/L Anion Gap 15 (12-20) BUN 8 L (9-16) mg/dL Creatinine 1.00 (0.5-1.4) mg/dL Estim Creat Clear Calc 98.3 Estimated GFR > 60 Random Glucose 86 (60-115) mg/dL Calcium 9.1 D (8.4-10.2) mg/dL Total Bilirubin 0.2 (0.0-1.0) mg/dL AST 81 H (5-37) U/L ALT 31 (0-40) U/L Alkaline Phosphatase 57 (39-117) U/L Total Protein 7.1 (6.5-8.0) g/dL Albumin 4.6 (3.5-5.0) g/dL Urine Opiates Screen (Not Detect) Urine Fentanyl Screen (Not Detect) Ur Barbiturates Screen (Not Detect) Ur Phencyclidine Scrn (Not Detect) Ur Amphetamines Screen (Not Detect) U Benzodiazepines Scrn (Not Detect) Urine Cocaine Screen (Not Detect) U Marijuana (THC) Screen (Not Detect) Ethyl Alcohol 204 mg/dL COVID-19 (THUAN) Negative (Negative) COVID-19 Clin Com See Note 11/05/22 Range/Units 02:11 WBC (4.8-10.8) X10*3/uL RBC (4.60-5.80) X10*6/uL Hgb (14.0-18.0) g/dl Hct (42.0-52.0) % MCV (80.0-98.0) fL MCH (27.0-33.0) pg MCHC (31.0-36.0) g/dl RDW (11.0-16.0) % Plt Count (160-400) X10*3/uL MPV (9.4-12.4) fL Immature Gran % (Auto) (0.0-0.4) % Neut % (Auto) (45-73) % Lymph % (Auto) (20-40) % Norman % (Auto) (2-11) % Eos % (Auto) (0-4) % Baso % (Auto) (0-2) % Lymph # (Auto) (1.2-4.9) X10*3/uL Norman # (Auto) (0.1-1.2) X10*3/uL Eos # (Auto) (0.0-0.4) X10*3/uL Baso # (Auto) (0.0-0.2) X10*3/uL Abs Immat Gran (auto) (0.00-0.03) X10*3/uL Absolute Neuts (auto) (2.0-8.3) x10*3/uL Absolute Nucleated RBC (0.0-0.012) X10*3/uL Nucleated RBC % (auto) (0.0-0.2) /100WBC Sodium (135-145) mmol/L Potassium (3.3-5.1) mmol/L Chloride (96-108) mmol/L Carbon Dioxide (22-29) mmol/L Anion Gap (12-20) BUN (9-16) mg/dL Creatinine (0.5-1.4) mg/dL Estim Creat Clear Calc Estimated GFR Random Glucose (60-115) mg/dL Calcium (8.4-10.2) mg/dL Total Bilirubin (0.0-1.0) mg/dL AST (5-37) U/L ALT (0-40) U/L Alkaline Phosphatase (39-117) U/L Total Protein (6.5-8.0) g/dL Albumin (3.5-5.0) g/dL Urine Opiates Screen Not Detected (Not Detect) Urine Fentanyl Screen Not Detected (Not Detect) Ur Barbiturates Screen Not Detected (Not Detect) Ur Phencyclidine Scrn Not Detected (Not Detect) Ur Amphetamines Screen Not Detected (Not Detect) U Benzodiazepines Scrn Not Detected (Not Detect) Urine Cocaine Screen POSITIVE H (Not Detect) U Marijuana (THC) Screen POSITIVE H (Not Detect) Ethyl Alcohol mg/dL COVID-19 (THUAN) (Negative) COVID-19 Clin Com <JEANNA Mcelroy - Last Filed: 11/11/22 09:24> Lab Results 11/04/22 11/04/22 11/04/22 Range/Units 15:35 16:00 16:00 WBC 11.6 H (4.8-10.8) X10*3/uL RBC 5.04 (4.60-5.80) X10*6/uL Hgb 15.9 (14.0-18.0) g/dl Hct 47.1 (42.0-52.0) % MCV 93.5 (80.0-98.0) fL MCH 31.5 (27.0-33.0) pg MCHC 33.8 (31.0-36.0) g/dl RDW 13.9 (11.0-16.0) % Plt Count 360 (160-400) X10*3/uL MPV 8.3 L (9.4-12.4) fL Immature Gran % (Auto) 0.3 (0.0-0.4) % Neut % (Auto) 55.7 (45-73) % Lymph % (Auto) 28.7 (20-40) % Norman % (Auto) 9.4 (2-11) % Eos % (Auto) 5.0 H (0-4) % Baso % (Auto) 0.9 (0-2) % Lymph # (Auto) 3.3 (1.2-4.9) X10*3/uL Norman # (Auto) 1.1 (0.1-1.2) X10*3/uL Eos # (Auto) 0.6 H (0.0-0.4) X10*3/uL Baso # (Auto) 0.1 (0.0-0.2) X10*3/uL Abs Immat Gran (auto) 0.04 H (0.00-0.03) X10*3/uL Absolute Neuts (auto) 6.5 (2.0-8.3) x10*3/uL Absolute Nucleated RBC 0.000 (0.0-0.012) X10*3/uL Nucleated RBC % (auto) 0.0 (0.0-0.2) /100WBC Sodium 148 H (135-145) mmol/L Potassium 4.2 (3.3-5.1) mmol/L Chloride 111 H (96-108) mmol/L Carbon Dioxide 26 (22-29) mmol/L Anion Gap 15 (12-20) BUN 8 L (9-16) mg/dL Creatinine 1.00 (0.5-1.4) mg/dL Estim Creat Clear Calc 98.3 Estimated GFR > 60 Random Glucose 86 (60-115) mg/dL Calcium 9.1 D (8.4-10.2) mg/dL Total Bilirubin 0.2 (0.0-1.0) mg/dL AST 81 H (5-37) U/L ALT 31 (0-40) U/L Alkaline Phosphatase 57 (39-117) U/L Total Protein 7.1 (6.5-8.0) g/dL Albumin 4.6 (3.5-5.0) g/dL Urine Opiates Screen (Not Detect) Urine Fentanyl Screen (Not Detect) Ur Barbiturates Screen (Not Detect) Ur Phencyclidine Scrn (Not Detect) Ur Amphetamines Screen (Not Detect) U Benzodiazepines Scrn (Not Detect) Urine Cocaine Screen (Not Detect) U Marijuana (THC) Screen (Not Detect) Ethyl Alcohol 204 mg/dL COVID-19 (THUAN) Negative (Negative) COVID-19 Clin Com See Note 11/05/22 Range/Units 02:11 WBC (4.8-10.8) X10*3/uL RBC (4.60-5.80) X10*6/uL Hgb (14.0-18.0) g/dl Hct (42.0-52.0) % MCV (80.0-98.0) fL MCH (27.0-33.0) pg MCHC (31.0-36.0) g/dl RDW (11.0-16.0) % Plt Count (160-400) X10*3/uL MPV (9.4-12.4) fL Immature Gran % (Auto) (0.0-0.4) % Neut % (Auto) (45-73) % Lymph % (Auto) (20-40) % Norman % (Auto) (2-11) % Eos % (Auto) (0-4) % Baso % (Auto) (0-2) % Lymph # (Auto) (1.2-4.9) X10*3/uL Norman # (Auto) (0.1-1.2) X10*3/uL Eos # (Auto) (0.0-0.4) X10*3/uL Baso # (Auto) (0.0-0.2) X10*3/uL Abs Immat Gran (auto) (0.00-0.03) X10*3/uL Absolute Neuts (auto) (2.0-8.3) x10*3/uL Absolute Nucleated RBC (0.0-0.012) X10*3/uL Nucleated RBC % (auto) (0.0-0.2) /100WBC Sodium (135-145) mmol/L Potassium (3.3-5.1) mmol/L Chloride (96-108) mmol/L Carbon Dioxide (22-29) mmol/L Anion Gap (12-20) BUN (9-16) mg/dL Creatinine (0.5-1.4) mg/dL Estim Creat Clear Calc Estimated GFR Random Glucose (60-115) mg/dL Calcium (8.4-10.2) mg/dL Total Bilirubin (0.0-1.0) mg/dL AST (5-37) U/L ALT (0-40) U/L Alkaline Phosphatase (39-117) U/L Total Protein (6.5-8.0) g/dL Albumin (3.5-5.0) g/dL Urine Opiates Screen Not Detected (Not Detect) Urine Fentanyl Screen Not Detected (Not Detect) Ur Barbiturates Screen Not Detected (Not Detect) Ur Phencyclidine Scrn Not Detected (Not Detect) Ur Amphetamines Screen Not Detected (Not Detect) U Benzodiazepines Scrn Not Detected (Not Detect) Urine Cocaine Screen POSITIVE H (Not Detect) U Marijuana (THC) Screen POSITIVE H (Not Detect) Ethyl Alcohol mg/dL COVID-19 (THUAN) (Negative) COVID-19 Clin Com <Georgia Finnegan [employer] - Last Filed: 11/04/22 18:07> Lab Results 11/04/22 11/04/22 11/04/22 Range/Units 15:35 16:00 16:00 WBC 11.6 H (4.8-10.8) X10*3/uL RBC 5.04 (4.60-5.80) X10*6/uL Hgb 15.9 (14.0-18.0) g/dl Hct 47.1 (42.0-52.0) % MCV 93.5 (80.0-98.0) fL MCH 31.5 (27.0-33.0) pg MCHC 33.8 (31.0-36.0) g/dl RDW 13.9 (11.0-16.0) % Plt Count 360 (160-400) X10*3/uL MPV 8.3 L (9.4-12.4) fL Immature Gran % (Auto) 0.3 (0.0-0.4) % Neut % (Auto) 55.7 (45-73) % Lymph % (Auto) 28.7 (20-40) % Norman % (Auto) 9.4 (2-11) % Eos % (Auto) 5.0 H (0-4) % Baso % (Auto) 0.9 (0-2) % Lymph # (Auto) 3.3 (1.2-4.9) X10*3/uL Norman # (Auto) 1.1 (0.1-1.2) X10*3/uL Eos # (Auto) 0.6 H (0.0-0.4) X10*3/uL Baso # (Auto) 0.1 (0.0-0.2) X10*3/uL Abs Immat Gran (auto) 0.04 H (0.00-0.03) X10*3/uL Absolute Neuts (auto) 6.5 (2.0-8.3) x10*3/uL Absolute Nucleated RBC 0.000 (0.0-0.012) X10*3/uL Nucleated RBC % (auto) 0.0 (0.0-0.2) /100WBC Sodium 148 H (135-145) mmol/L Potassium 4.2 (3.3-5.1) mmol/L Chloride 111 H (96-108) mmol/L Carbon Dioxide 26 (22-29) mmol/L Anion Gap 15 (12-20) BUN 8 L (9-16) mg/dL Creatinine 1.00 (0.5-1.4) mg/dL Estim Creat Clear Calc 98.3 Estimated GFR > 60 Random Glucose 86 (60-115) mg/dL Calcium 9.1 D (8.4-10.2) mg/dL Total Bilirubin 0.2 (0.0-1.0) mg/dL AST 81 H (5-37) U/L ALT 31 (0-40) U/L Alkaline Phosphatase 57 (39-117) U/L Total Protein 7.1 (6.5-8.0) g/dL Albumin 4.6 (3.5-5.0) g/dL Urine Opiates Screen (Not Detect) Urine Fentanyl Screen (Not Detect) Ur Barbiturates Screen (Not Detect) Ur Phencyclidine Scrn (Not Detect) Ur Amphetamines Screen (Not Detect) U Benzodiazepines Scrn (Not Detect) Urine Cocaine Screen (Not Detect) U Marijuana (THC) Screen (Not Detect) Ethyl Alcohol 204 mg/dL COVID-19 (THUAN) Negative (Negative) COVID-19 Clin Com See Note 11/05/22 Range/Units 02:11 WBC (4.8-10.8) X10*3/uL RBC (4.60-5.80) X10*6/uL Hgb (14.0-18.0) g/dl Hct (42.0-52.0) % MCV (80.0-98.0) fL MCH (27.0-33.0) pg MCHC (31.0-36.0) g/dl RDW (11.0-16.0) % Plt Count (160-400) X10*3/uL MPV (9.4-12.4) fL Immature Gran % (Auto) (0.0-0.4) % Neut % (Auto) (45-73) % Lymph % (Auto) (20-40) % Norman % (Auto) (2-11) % Eos % (Auto) (0-4) % Baso % (Auto) (0-2) % Lymph # (Auto) (1.2-4.9) X10*3/uL Norman # (Auto) (0.1-1.2) X10*3/uL Eos # (Auto) (0.0-0.4) X10*3/uL Baso # (Auto) (0.0-0.2) X10*3/uL Abs Immat Gran (auto) (0.00-0.03) X10*3/uL Absolute Neuts (auto) (2.0-8.3) x10*3/uL Absolute Nucleated RBC (0.0-0.012) X10*3/uL Nucleated RBC % (auto) (0.0-0.2) /100WBC Sodium (135-145) mmol/L Potassium (3.3-5.1) mmol/L Chloride (96-108) mmol/L Carbon Dioxide (22-29) mmol/L Anion Gap (12-20) BUN (9-16) mg/dL Creatinine (0.5-1.4) mg/dL Estim Creat Clear Calc Estimated GFR Random Glucose (60-115) mg/dL Calcium (8.4-10.2) mg/dL Total Bilirubin (0.0-1.0) mg/dL AST (5-37) U/L ALT (0-40) U/L Alkaline Phosphatase (39-117) U/L Total Protein (6.5-8.0) g/dL Albumin (3.5-5.0) g/dL Urine Opiates Screen Not Detected (Not Detect) Urine Fentanyl Screen Not Detected (Not Detect) Ur Barbiturates Screen Not Detected (Not Detect) Ur Phencyclidine Scrn Not Detected (Not Detect) Ur Amphetamines Screen Not Detected (Not Detect) U Benzodiazepines Scrn Not Detected (Not Detect) Urine Cocaine Screen POSITIVE H (Not Detect) U Marijuana (THC) Screen POSITIVE H (Not Detect) Ethyl Alcohol mg/dL COVID-19 (THUAN) (Negative) COVID-19 Clin Com <Nir Calvin MD - Last Filed: 11/05/22 09:49> Discharge Plan Discharge Clinical Impression: Depression, Substance abuse <JEANNA Mcelroy - Last Filed: 11/11/22 09:24> Patient Disposition: Home, Self-Care <JEANNA Mcelroy - Last Filed: 11/11/22 09:24> Instructions: Polysubstance Abuse (ED) <JEANNA Mcelroy - Last Filed: 11/11/22 09:24> Prescriptions: No Action No Known Home Meds <JEANNA Mcelroy - Last Filed: 11/11/22 09:24> Referrals: Physician,None [Primary Care Provider] - 3 days <JEANNA Mcelroy - Last Filed: 11/11/22 09:24> Interventions: [place]-Suicide Risk Severity Scale Last Done: 11/05/22 10:40 ED Discharge Assessment Last Done: 11/05/22 11:40 <JEANNA Mcelroy - Last Filed: 11/11/22 09:24> Discharge Date/Time: 11/05/22 11:40 <JEANNA Mcelroy - Last Filed: 11/11/22 09:24>
[2022-11-04 16:05] LABS: MANUAL DIFF FLAG NO
[2022-11-04 16:06] LABS: COVID-19 Test Negative (Negative); IDNOW Serial# BCCEAD1C
[2022-11-04 16:07] LABS: Basophils Absolute Auto 0.1 X10*3/uL (0.0-0.2); Basophils Percent Auto 0.9 % (0-2); Eosinophils Absolute Auto 0.6 X10*3/uL (0.0-0.4); Hematocrit 47.1 % (42.0-52.0); Hemoglobin 15.9 g/dl (14.0-18.0); Imm Gran Abs Auto 0.04 X10*3/uL (0.00-0.03); Imm Gran Pct Auto 0.3 % (0.0-0.4); Lymphocytes Absolute Auto 3.3 X10*3/uL (1.2-4.9); Lymphocytes Percent Auto 28.7 % (20-40); Mean Corpuscular HGB Conc 33.8 g/dl (31.0-36.0); Mean Corpuscular Hemoglobin 31.5 pg (27.0-33.0); Mean Corpuscular Volume 93.5 fL (80.0-98.0); Mean Platelet Volume 8.3 fL (9.4-12.4); Monocytes Absolute Auto 1.1 X10*3/uL (0.1-1.2); Monocytes Percent Auto 9.4 % (2-11); Neutrophils Absolute Auto 6.5 x10*3/uL (2.0-8.3); Neutrophils Percent Auto 55.7 % (45-73); Platelet Count 360 X10*3/uL (160-400); Red Blood Count 5.04 X10*6/uL (4.60-5.80); Red Cell Distribution Width 13.9 % (11.0-16.0); White Blood Count 11.6 X10*3/uL (4.8-10.8)
[2022-11-04 16:20] LABS: Alanine Aminotransferase 31 U/L (0-40); Albumin Level 4.6 g/dL (3.5-5.0); Alkaline Phosphatase 57 U/L (39-117); Anion Gap 15 (12-20); Aspartate Amino Transferase 81 U/L (5-37); Bilirubin Total 0.2 mg/dL (0.0-1.0); Blood Urea Nitrogen 8 mg/dL (9-16); Calcium 9.1 mg/dL (8.4-10.2); Carbon Dioxide 26 mmol/L (22-29); Chloride 111 mmol/L (96-108); Creatinine Clr Calc Pharmacy 98.3; Estimated Glomerular Filt Rate > 60; Ethanol 204 mg/dL; Glucose Random 86 mg/dL (60-115); Potassium 4.2 mmol/L (3.3-5.1); Sodium 148 mmol/L (135-145); Total Protein 7.1 g/dL (6.5-8.0)
--- NOTE | 2022-11-04 18:55 | MHC.CARE ---
Upon approach, Pt was observed asleep in bed. Pt woke when CARE team clinician entered the room and and sat up and greeted clinician. Pt is known to the CARE Team and was seen in June 2022 Pt appearance was fair, dressed in hospital attire and hair disheveled. Pt remained alert and oriented x3 during interaction. Pt reports that he self presented to [facility] wanting to seek help for his addiction reporting that he is an addict. When asked what he is addicted to, Pt reports ETOH addiction and no drug addiction. Pt
--- NOTE | 2022-11-04 19:47 | MHC.CARE ---
Pt is a 27-year-old white, single, employed male. Pt has a history of depression with alcohol use disorder and self presented to the ER with reports of feeling depressed. Pt is known to the CARE Team and this is his second visit in the unit, he was last seen July 19, 2022. During this time he was seen for depression and substance abuse. Upon approach, Pt was observed asleep in bed. Pt woke when the CARE team clinician entered the room and sat up and greeted the clinician. Pt appearance was fair, dressed in hospital attire and hair disheveled. Pt remained alert and oriented x3 during interaction and remained engaged in conversation. Speech was WNL, and affect was congruent with mood. When asked what brought him to the ED today, Pt reports that ?he just wants help?. Pt reports that he is addicted to ETOH? and has been struggling with drinking. Pt reports that he has not been using drugs but has a history of drug use including Marijuana and crack/cocaine. Pt reports that during his last visit with the CARE team he was referred to services for Medication management though these services lapsed due to pt not paying the premium payment on the medications. Pt reports that he wants help ?getting back on track and getting some services to help him?. When asked what he thinks would help him pt reported that he would like getting some help with his insurance and getting medication management services again. When asked if he would consider detox for his ETOH addiction pt reported that he would be interested in detox as well and is willing to try any treatment to get some help. Clinician then inquired with Pt on his current mood and depressed symptoms. Pt reported mood as ?fine mostly just has been feeling more depressed recently?. When asked what the change has been recently to trigger the depressive symptoms pt reported that his roommate that he is close to is moving out of his apartment and he has felt stressed about this. Pt reports that his depressive symptoms has triggered him to drink more as of lately, though he feels like is a ?functional alcoholic for most of the time?. Pt denies SI/ HI/ AVH. Patient has insight and demonstrates good judgment in terms of wanting to pursue treatment. The CARE Team is requesting that pt meet with head tennis coach.
--- NOTE | 2022-11-04 21:27 | MHC.RECOVSUP ---
? Reason for consult:Recovery Support o Current location: o Identified substance use concern: AUD - Support ? ?Intervention: o Community resources provided o Harm reduction discussion ? Plan: o Follow up tomorrow ? ? Additional information:?Met with pt. 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 Possible CSS, TSS then residential. Pt has no health insurance at this time. Recovery Support team please follow up in the morning for further treatment.Harm reduction strategies were discussed along with his options for treatment.
--- NOTE | 2022-11-05 01:23 | PC.NURSE ---
Patient is currently in bed appears sleeping, no distress observed/reported, patient is asymptomatic of ETOH withdrawal, med rec completed/currently not on any medication, recovery team will follow up with patient in the morning, behavior non concerning, will continue to monitor.
[2022-11-05 02:10] VITALS: BP 135/81; PULSE 78; RESP 19; TEMP 36.6; O2SAT 99
[2022-11-05 02:29] LABS: Amphetamine Screen Urine Not Detected (Not Detect); Barbiturates, Urine Not Detected (Not Detect); Benzodiazepines Screen Urine Not Detected (Not Detect); Cannabinoid Screen Urine POSITIVE (Not Detect); Cocaine Screen Urine POSITIVE (Not Detect); Fentanyl, urine Not Detected (Not Detect); Opiate Screen Urine Not Detected (Not Detect); Phencyclidine Screen Urine Not Detected (Not Detect)
[2022-11-05 06:01] VITALS: BP 111/78; PULSE 75; RESP 18; TEMP 36.1
--- NOTE | 2022-11-05 09:06 | MHC.RECOVRN ---
Unable to reach intake at [facility]. Referral sent to [facility].
[2022-11-05 10:25] VITALS: BP 108/61; PULSE 77; RESP 17; TEMP 37.1; O2SAT 98
--- NOTE | 2022-11-05 11:30 | MHC.RECOVSUP ---
Pt accepted to [facility] for 12pm intake.
== END 2022-11-05 11:40 | disposition home or self-care (01) ==
PROVIDERS: Physician Assistant; Emergency Provider Emergency Medicine
DX: F33.1 Major depressive disorder, recurrent, moderate (principal); F14.10 Cocaine abuse, uncomplicated; Z20.822 Contact with and (suspected) exposure to COVID-19; Z20.828 Contact with and (suspected) exposure to other viral communicable diseases; Z79.899 Other long term (current) drug therapy
CPT/HCPCS: 36415; 80053; 80307; 82077; 85025; 87635; 99284

== ENCOUNTER 2025-05-02 08:11 | Emergency (ER) | payer SELFPAY ==
[2025-05-02 08:14] VITALS: BP 130/84; PULSE 78; RESP 18; TEMP 36.4; O2SAT 95; BMI 25.0
--- NOTE | 2025-05-02 08:19 | ED_ITS ---
HPI - Ear Problem General Chief complaint: Ear Problems Stated complaint: R ear infection? Time Seen by Provider: 05/02/25 08:18 Source: patient Mode of arrival: ambulatory Limitations: no limitations History of Present Illness ED Provider: EVAN HPI Narrative: 29 yo male with PMH of bipolar notes over the weekend he was with his girlfriend and started with nasal congestion, temps of 99.3, feels sinus pressure. He then started with atraumatic R ear pain and feels he has an ear infection he used to get them frequently as a child but no eustachian tubes. He took tylenol this AM for pain. Complaint: ear pain Location: right ear Duration: constant Severity: moderate Relieving factors: nothing Exacerbating factors: position of head Context: recent illness Discharge from ear: no Associated symptoms ear: fever Treatment prior to arrival: other Related Data Previous Rx's ?Medication ?Instructions ?Recorded amoxicillin 875 mg-potassium 1 tab PO BID #14 tabs 01/19 clavulanate 125 mg tablet Allergies Allergy/AdvReac Type Severity Reaction Status Date / Time No Known Allergies (No Known Allergy Unverified 05/02/25 08:16 Allergies*) Review of Systems Review of Systems: Yes all other systems are reviewed and are negative PMFSH Past Medical History Attestation statement: The following information was validated with the patient. Source: old records reviewed Medical History Bipolar disorder Suicidal ideation Social History Social History Household Members: None Housing: Apartment Do you presently have visiting nurse or other home services: No Alcohol intake: current Alcohol intake frequency: holidays/special occasions only Patient Tobacco Use Status: Current everyday Tobacco user Tobacco use type: Cigarette Cigarette Packs Per Day: 1 Cigarettes Per Day: 20.0 Years Smoked: 9 e-Cigarette/Vaping Use: Never Used Second Hand Smoke Exposure: Yes Substance Use Type: Crack/Cocaine and Marijuana service: No Sexual orientation: Straight/Heterosexual Physical Exam Vital Signs: Vital Signs: Last Vital Signs Temp 97.5 F 05/02/25 08:14 Pulse 78 05/02/25 08:14 Resp 18 05/02/25 08:14 BP 130/84 05/02/25 08:14 Pulse Ox 95 05/02/25 08:14 O2 Del Method Room Air 05/02/25 08:14 BMI result Body Mass Index 25.0 Appearance: Alert. Oriented X3. No acute distress. Eyes: Pupils equal, round and reactive to light. ENT: Pharynx mild erythema but uvula is midline and no exudates. L TM normal, R TM flat dull with effusion behind it no perforation, no mastoid ttp Neck: Normal inspection. CVS: Normal heart rate and rhythm. Pulses normal. Respiratory: No respiratory distress. Breath sounds normal. Abdomen: Soft and nontender. Skin: Skin warm and dry. Normal skin color. Extremities: No lower extremity edema. Neuro: Oriented X 3. No motor deficit. No sensory deficit. Medical Decision Making Medical Decision Making MDM Narrative: 29 yo male with PMH of bipolar disorder here with URI symptoms and now R ear pain on exam + for AOM but no rupture will need augmentin therapy. He also has no signs of mastoid ttp and no deeper space infection. Differential Diagnosis Differential Diagnoses: The differential diagnosis associated with the presentation includes viral syndrome, AOM Admission/Observation Consideration of admission/observation: Escalation of care including admission/observation considered not toxic and no signs of deeper space infectino External Record Review External record reviewed: Outpatient record Prescription Management I considered prescription management with: Antibiotic Discharge Plan Discharge Clinical Impression: Otitis media Patient Disposition: Home, Self-Care Instructions: Ear Infection (ED) Additional Instructions: alternate tylenol and motrin for pain finish all antibiotics return for worsening symptoms, pain, or any other concerns On amoxicillin-clavulanate, softer bowel movements are to be expected. Call your provider if you move your bowels more than 4 times a day, your bowel movements are almost all liquid, or you get a rash.? Prescriptions: New amoxicillin-pot clavulanate 875-125 mg tablet 1 tab PO BID Qty: 14 0RF Stand Alone Forms: Work/School Release Print Language: Montserratian
--- NOTE | 2025-05-02 08:20 | PC.NURSE ---
MD baird to triage for primary assessment and evaluation while patient in triage. Pt relocated to [facility] chair pending dc paperwork and registration
[2025-05-02 08:29] VITALS: BP 130/84; PULSE 78; RESP 18; TEMP 36.4; O2SAT 95
--- OUTSIDE RECORDS SUMMARY | 2025-05-02 09:06 | XMS_ITS | Clinical Summary ---
Author Organization [facility] Address [address] [place] [address] Phone Care Team Providers Care Waiter/Waitress Buffet Name Role Phone Unavailable Primary Care Provider Unavailabl e Immunizations Immunization Administration Dates Next Due DTP 10/23/1998, 8,02/06/1994, 994,1993 H1N1 11/01/2009 HPV, Quadrivalent 03/09/2014,10/29/2012,06/23/20 12 Hep A, ped/adol 12/15/2013,02/28/2011 Hep B, ped/adol 02/06/1994,1993,1993 Hib (HbOC) 11/07/1994, 4,1993, 994 IPV 04/25/1999 Influenza Split 06/23/2012 Influenza, injectable, trivalent 09/06/2008 Influenza, intranasal, trivalent 03/27/2010 MMR 10/23/1998,09/24/1994 Meningococcal Conj (Menactra) MCV4P 03/05/2006 OPV 02/06/1994,1993,1993 Tdap 03/05/2006 Varicella 09/06/2008,02/13/1998 Family History Relation Name Status Comments Father Alive Father: recover ing addict Mother Alive Mother: Alive a nd well, L4-L5 nerve damage, Alive and well, No Family history of No history of *Heart Disease Other No family histo ry of *Sudden /[place] under 55, Family history of *Dental caries, Family history of *CVA/Stroke Sister Alive Sister: ADD/ADH D Social History Tobacco Use Types Packs/Day Years Used Date Smoking Tobacco: Every Day Comments:Current every day s moker Sex and Gender Information Value Date Recorded Sex Assigned at Not on file Legal Sex Male 4:44 PM EDT Gender Identity Not on file Sexual Orientation Not on file Last Filed Vital Signs Vital Sign Reading Time Taken Comments Blood Pressure 117/70 07/26/2014 12:00 AM EST Pulse 77 07/26/2014 12:00 AM EST Temperature 36.9 C (98.4 F) 07/26/2014 12:00 AM EST Respiratory Rate - - Oxygen Saturation - - Inhaled Oxygen Concentration - - Weight 62.8 kg (138 lb 6.4 oz) 07/26/2014 12:00 AM EST Height 168.4 cm (5' 6.3 ) 01/12/2014 12:00 AM ED T Body Mass Index 22.14 01/12/2014 12:00 AM EDT Plan of Treatment Health Maintenance Due Date Last Done Comments Hepatitis A Vaccines (2 of 2 - 2-dose series) 06/17/2014 12/15/2013, 02/28/2011 DTaP,Tdap,and Td Vaccines (7 - Td or Tdap) 03/05/2016 03/05/2006, 10/23/1998, 02/13/1998, Additional history exists Influenza Vaccines (#1) 2025 06/23/20 12, 03/27/2010, 09/06/2008 COVID-19 Vaccine ( season) 2025 Hepatitis B Vaccines Completed 02/06/1994, 1993, 1993 HIB Vaccines Completed 11/07/1994, 01/25, 1993, Additional history exists MMR Vaccines Completed 10/23/1998, 09/24/1994 IPV Vaccines Completed 04/25/1999, 01/25, 1993, Additional history exists Meningococcal Vaccine Aged Out 03/05/2006 No veronica piper eligible based on patient's age to complete this topic Varicella Vaccines Completed 09/06/2008, 02/13/1998 HPV Vaccines Completed 03/09/2014, 04/0 10/2012, 06/23/2012 Men B Vaccine Aged Out No longer elig ible based on patient's age to complete this topic Pneumococcal Vaccine Aged Out No long er eligible based on patient's age to complete this topic
--- OUTSIDE RECORDS SUMMARY | 2025-05-02 09:06 | XMS_ITS | Encounter Summary ---
Author Organization [facility] Address [address] [place] [address] Phone Care Team Providers Care Bead Wire Insulator Name Role Phone Ganga Maya MD Primary Care Provider [phone] Encounter Details Date Type Department Care Team (Late st Contact Info) Description 03/13/2017 Conversion Encounter [facility] [place] [address] [place] [address] Social History Tobacco Use Types Packs/Day Years Used Date Smoking Tobacco: Every Day Comments:Current every day s moker Sex and Gender Information Value Date Recorded Sex Assigned at Not on file Legal Sex Male 4:44 PM EDT Gender Identity Not on file Sexual Orientation Not on file documented as of this encounter Plan of Treatment Not on file documented as of this encounter Visit Diagnoses Not on filedocumented in this encounter Care Teams Bead Wire Insulator Relationship Specialty Start Date End Date Ganga Maya MD [address] [place] [address] PCP - General 03/07/17 10/27/22 documented as of this encounter
--- OUTSIDE RECORDS SUMMARY | 2025-05-02 09:06 | XMS_ITS | Encounter Summary ---
Author Organization [facility] Address [address] [place] [address] Phone Care Team Providers Care Mass Spectrometry Manager Name Role Phone Ganga Maya MD Primary Care Provider [phone] Encounter Details Date Type Department Care Team (Late st Contact Info) Description 12/06/2009 Documentation EM Family Medicine [address] [place] [address] Family Medicine, Physician [address] [place], [place] [id number] Social History Tobacco Use Types Packs/Day Years Used Date Smoking Tobacco: Never Assessed Sex and Gender Information Value Date Recorded Sex Assigned at Not on file Legal Sex Male 4:44 PM EDT Gender Identity Not on file Sexual Orientation Not on file documented as of this encounter Plan of Treatment Not on file documented as of this encounter Visit Diagnoses Not on filedocumented in this encounter Care Teams Mass Spectrometry Manager Relationship Specialty Start Date End Date Ganga Maya MD [address] [place] [address] PCP - General 03/07/17 10/27/22 documented as of this encounter
--- OUTSIDE RECORDS SUMMARY | 2025-05-02 09:06 | XMS_ITS | Encounter Summary ---
Author Organization [facility] Address [address] [place] [phone] Phone Care Team Providers Care Glost Tile Sorter Name Role Phone Ganga Maya MD Primary Care Provider [phone] Encounter Details Date Type Department Care Team (Late st Contact Info) Description 01/27/2012 Documentation EM Family Medicine [address] [place] [address] Family Medicine, Physician [address] [place], [place] [id number] Social History Tobacco Use Types Packs/Day Years [...] on filedocumented in this encounter Care Teams Glost Tile Sorter Relationship Specialty Start Date End Date Ganga Maya MD [address] [place] [address] PCP - General 03/07/17 10/27/22 documented as of this encounter
--- OUTSIDE RECORDS SUMMARY | 2025-05-02 09:06 | XMS_ITS | Encounter Summary ---
Author Organization [facility] Address [address] [place] [id number] Phone Care Team Providers Care Director Of Federal Sales Name Role Phone Ganga Maya MD Primary Care Provider [phone] Encounter Details Date Type Department Care Team (Late st Contact Info) Description 11/28/2009 Documentation EM Family Medicine [address] [place] [address] Family Medicine, Physician [address] [place], [place] [phone] Social History Tobacco Use Types Packs/Day Years [...] on filedocumented in this encounter Care Teams Director Of Federal Sales Relationship Specialty Start Date End Date Ganga Maya MD [address] [facility] [place] [address] PCP - General 03/07/17 10/27/22 documented as of this encounter
== END 2025-05-02 08:30 | disposition home or self-care (01) ==
LOC: HO.ED 08:30
PROVIDERS: Emergency Provider Emergency Medicine
DX: H66.91 Otitis media, unspecified, right ear (principal); R50.9 Fever, unspecified; R09.81 Nasal congestion; H92.01 Otalgia, right ear
CPT/HCPCS: 99283; 99284